=== PATIENT | male | born 1960 | race Caucasian/White ===

== ENCOUNTER 2017-09-02 16:10 | Emergency (ER) | payer OTHER ==
[~2017-09-02] VITALS: Ht 177.8 cm; Wt 103.4 kg
--- NOTE | 2017-09-02 17:20 | RADIOLOGY REPORT ---
EXAMINATION: XR SHOULDER, RIGHT CLINICAL INFORMATION: Shoulder pain. Decreased range of motion. No injury. COMPARISON: None TECHNIQUE: Three views of the right shoulder. FINDINGS: There are small spurs of the distal clavicle at the, clavicular joint. The spurs inferior and could raise question of impingement changes. There is a small calcification, measuring about 5 mm, in the soft tissues adjacent to the greater tuberosity of the humerus. This is calcific tendinosis/bursitis. The glenohumeral joint is normal. Status post median sternotomy. Linear scarring/linear atelectasis at the right lung base above the diaphragm. IMPRESSION: 1. Degenerative spurring of the, clavicular joint. This can raise question of impingement changes which can be further assessed with MRI. 2. Soft tissue calcification of calcific tendinosis/bursitis.
--- NOTE | 2017-09-02 18:47 | ED UPPER/LOWER EXTREMITY COMPL ---
History of Present Illness General Chief Complaint: Shoulder Injury Stated Complaint: R SHOULDER PAIN Source: patient Exam Limitations: no limitations Vital Signs & Intake/Output Vital Signs & Intake/Output Vital Signs Date Time Temp Pulse Resp B/P B/P Pulse O2 O2 Flow FiO2 Mean Ox Delivery Rate 09/02 1627 98.2 91 18 123/89 98 Room Air Allergies Coded Allergies: No Known Allergies (09/02/17) Reconcile Medications Cyclobenzaprine HCl 5 MG TABLET 1 TAB PO TIDPRN PRN muscle strain take one tab during the day, two tabs at night as needed Oxycodone HCl/Acetaminophen (Percocet 5-325 MG Tablet) 5 MG-325 MG TABLET 1 TAB PO BID PRN pain Triage Note: 57 YO MALE TO TRIAGE FOR EVAL OF ?R SHOULDER DISLOCATION, PT REPORTS HE DID NOT INJUIRY THE ARM , STATES THE PAIN STARTED YESTERDAY AROUND 1400, REPORTS HE CANNOT LIFT HIS ARM UP. +RADIAL PULSE. Triage Nurses Notes Reviewed? yes Onset: Gradual Duration: day(s): Timing: recent history Severity: moderate Pain/Injury Location: Right: Shoulder. Method of Injury: unknown HPI: 57-year-old male presents to emergency department complaining of pain in right shoulder the past few days. Patient states that pain has been worsening and today was more severe so he came into the emergency Department. Patient states he was though he cannot raise his arm fully due to pain in his shoulder. There is no injury or trauma prior to onset of his symptoms. Patient states he has been doing a lot of arm physical therapy due to recent heart surgery last month. Patient denies swelling, numbness, tingling. (Violette KATHLEEN,Clemencia Christie) Past History Travel History Traveled to [place] past 21 day No Medical History Any Pertinent Medical History? 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 No (Clemencia Chua) Review of Systems Review of Systems Constitutional: Reports: no symptoms. EENTM: Reports: no symptoms. Respiratory: Reports: no symptoms. Cardiovascular: Reports: no symptoms. Gastrointestinal/Abdominal: Reports: no symptoms. Genitourinary: Reports: no symptoms. Musculoskeletal: Reports: see HPI. Skin: Reports: no symptoms. Neurological/Psychological: Reports: no symptoms. Hematologic/Endocrine: Reports: no symptoms. Immunological: Reports: no symptoms. All Other Systems: Reviewed and Negative (Violette KATHLEEN,Clemencia Christie) Physical Exam Physical Exam General Appearance: well developed/nourished, no apparent distress, alert, awake Head: atraumatic, normal appearance Eyes: Bilateral: normal appearance. Ears, Nose, Throat: hearing grossly normal Neck: normal inspection, supple, full range of motion Cardiovascular/Respiratory: normal peripheral pulses, no respiratory distress Peripheral Pulses: 2+ radial (R), 2+ radial (L) Back: normal inspection, normal range of motion Shoulder Left: normal range of motion, normal inspection Shoulder Right: tenderness to anterior and lateral shoulder, no gross deformity, ROM with active and passive flexion is limited d/t pain Elbow Left: normal range of motion, normal inspection Elbow Right: normal range of motion, normal inspection Hand Left: normal inspection, normal range of motion Hand Right: normal inspection, normal range of motion Neurologic/Tendon: normal sensation Skin: intact, normal color, warm/dry (Violette KATHLEEN,Clemencia Christie) Progress Differential Diagnosis: cellulitis, contusion, fracture, sprain, tendon injury Plan of Care: Orders Procedure Date/time Status Durable Medical Equipment 09/02 1900 Active No evidence of acute fracture dislocation detected on x-ray. Patient's symptoms are likely tendinitis versus inflammation from overuse injury. Patient to begin medications to help with symptoms and placed in shoulder immobilizer. He was educated on Rice therapy. He was given orthopedic follow-up for further investigation including possible MRI if warranted. Patient has intact distal pulses, he is in no acute distress. He agrees with the plan of care. Diagnostic Imaging: Viewed by Me: Radiology Read. Discussed w/RAD: Radiology Read. Radiology Impression: PATIENT: ARUNA COTTER PRESENT AGE: 57 PATIENT ACCOUNT NO: [id number] : 60 LOCATION: [facility] ORDERING PHYSICIAN: Clemencia KATHLEEN SERVICE DATE: 09/02/179625 EXAM TYPE: RAD - XRY-SHOULDER COMPLETE-RIGHT EXAMINATION: XR SHOULDER, RIGHT CLINICAL INFORMATION : Shoulder pain. Decreased range of motion. No injury. COMPARISON: None TECHNIQUE: Three views of the right shoulder. FINDINGS: There are small spurs of the distal clavicle at the, clavicular joint. The spurs inferior and could raise question of impingement changes. There is a small calcification, measuring about 5 mm, in the soft tissues adjacent to the greater tuberosity of the humerus. This is calcific tendinosis/bursitis. The glenohumeral joint is normal. Status post median sternotomy. Linear scarring/linear atelectasis at the right lung base above the diaphragm. IMPRESSION: 1. Degenerative spurring of the, clavicular joint. This can raise question of impingement changes which can be further assessed with MRI. 2. Soft tissue calcification of calcific tendinosis/ bursitis. DICTATED BY: Alex Mchugh MD DATE/TIME DICTATED:09/02/171713 CLAIMS AUDITOR:CHRISTIAN DATE/TIME TRANSCRIBED:09/02/171713 CONFIDENTIAL, DO NOT COPY WITHOUT APPROPRIATE AUTHORIZATION. <Electronically signed in Other Vendor System> SIGNED BY: Alex Mchugh MD 09/02/171719 (Clemencia Chua) Departure Departure Disposition: HOME OR SELF CARE Condition: Stable Clinical Impression Primary Impression: Shoulder pain Referrals: Shirley Casas MD (PCP/Family) Onesimo BEDOLLA,Andrez Mckeon Additional Instructions: Take a muscle relaxer and pain medication as prescribed. Follow-up with orthopedic doctor for possible MRI. Return if Worsening symptoms or concerns. Please note that there might be incidental findings in your evaluation that are unrelated to the current emergency department visit. Please notify your primary care doctor about this emergency department visit in order to obtain and review all of the testing performed so that these incidental findings can be monitored as needed. If you had an x-ray performed, please understand that some fractures may not be seen on the initial set of x-rays. If your symptoms persist you might need a repeat set of x-rays to check for such a fracture. If you had a laceration evaluated, please understand that foreign bodies such as glass or wood may not be visible to the naked eye or on plain x-rays. If the wound becomes red, swollen, increasingly more painful or if there is any drainage from the wound, please have it reevaluated by a physician for the possibility of a retained foreign body. If you're unable to follow up as outlined in the discharge instructions please return to the emergency department. Thank you for choosing the [facility] Emergency Department for your care. It was a pleasure to serve you today. Departure Forms: Customer Survey General Discharge Information Prescriptions: Current Visit Scripts Cyclobenzaprine HCl 1 TAB PO TIDPRN PRN muscle strain #21 TAB take one tab during the day, two tabs at night as needed Oxycodone HCl/Acetaminophen (Percocet 5-325 MG Tablet) 1 TAB PO BID PRN pain #10 TAB (Violette KATHLEEN,Clemencia Christie) PA/PRIVATE DUTY NURSE Co-Sign Statement Statement: ED Attending supervision documentation- [] I saw and evaluated the patient. I have also reviewed all the pertinent lab results and diagnostic results. I agree with the findings and the plan of care as documented in the PA's/PRIVATE DUTY NURSE's documentation. [x] I have reviewed the ED Record and agree with the PA's/PRIVATE DUTY NURSE's documentation. [] Additions or exceptions (if any) to the PAs/PRIVATE DUTY NURSE's note and plan are summarized below: [] (Dilan BEDOLLA,[facility])
[2017-09-02] MEDS ORDERED: CYCLOBENZAPRINE5 M2 PO (19:00)
[2017-09-02] MEDS ORDERED: PERCOCET 5-3251 EACH PO (19:00)
[2017-09-02 19:04] VITALS: BP 126/91
== END 2017-09-02 19:17 ==
LOC: ERH 16:10
DX: M25.511 Pain in right shoulder (principal)
CPT/HCPCS: 73030-RT